=== PATIENT | female | born 1960 | race Caucasian/White ===

== ENCOUNTER 2019-08-12 18:03 | Emergency (ER) | payer OTHER ==
[~2019-08-12] VITALS: Ht 172.7 cm; Wt 76.5 kg
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
[2019-08-12] MEDS ORDERED: HALOPERIDOL 5 MG/ML ONE (18:27)
[2019-08-12] MEDS ORDERED: HALOPERIDOL 5 MG/ML IM ONE (18:30)
[2019-08-12 18:40] LABS: BASOPHILS # (AUTO) 0.02 x10^3/uL (0-0.1); BASOPHILS % (AUTO) 0 % (0-1); EOSINOPHILS # (AUTO) 0.05 x10^3/uL (0-0.4); EOSINOPHILS % (AUTO) 1 % (1-7); LYMPHOCYTES # (AUTO) 1.37 x10^3/uL (1-3.4); LYMPHOCYTES % (AUTO) 22 % (22-44); MD NO; MEAN CORPUSCULAR HEMOGLOBIN 30.8 pg (27.0-34.8); MEAN CORPUSCULAR HGB CONC 32.7 g/dL (32.4-35.8); MEAN CORPUSCULAR VOLUME 94.2 fL (80-100); MONOCYTES # (AUTO) 0.13 x10^3/uL (0.2-0.8); MONOCYTES % (AUTO) 2 % (2-9); NEUTROPHILS # (AUTO) 4.66 x10^3/uL (1.8-6.8); NEUTROPHILS % (AUTO) 75 % (42-75); PLATELET COUNT 327 x10^3/uL (130-400); RED BLOOD COUNT 4.97 x10^6/uL (3.82-5.3); RED CELL DISTRIBUTION WIDTH 14.3 % (9.6-15.2)
[2019-08-12 18:49] LABS: ALANINE AMINOTRANSFERASE 28 U/L (12-78); ALBUMIN 4.1 g/dL (3.4-5.0); ANION GAP 8 mmol/L (5-15); CALCIUM 9.8 mg/dL (8.5-10.1); CHLORIDE 108 mmol/L (98-107); CREATININE 0.75 mg/dL (0.55-1.02)
[2019-08-12 18:53] LABS: ALKALINE PHOSPHATASE 85 U/L (45-117); BILIRUBIN,TOTAL 0.3 mg/dL (0.2-1.0); TOTAL PROTEIN 7.8 g/dL (6.4-8.2); TROPONIN I < 0.015 ng/mL (0.000-0.045)
--- NOTE | 2019-08-12 19:18 | NUR ---
REPORT GIVEN TO KAREN.
--- NOTE | 2019-08-12 19:19 | NUR ---
REPORT FROM RENE, ASSUME CARE OF PT AT THIS TIME.
--- NOTE | 2019-08-12 19:54 | NUR ---
EKG COMPLETED. PT UP TO BSC, URINE COLLECTED/SENT TO LAB. VSS/UPDATED IN COMPUTER.
[2019-08-12 20:03] LABS: MICROSCOPIC NOT IND
[2019-08-12 20:04] LABS: CULTURE INDICATED? NO
[2019-08-12 20:13] LABS: AMPHETAMINE SCREEN, URINE Negative (Negative); BARBITURATE SCREEN, URINE Negative (Negative); BENZODIAZEPINE SCREEN, URINE Negative (Negative); CANNABINOID SCREEN, URINE Negative (Negative); COCAINE SCREEN, URINE Negative (Negative); METHADONE SCREEN, URINE Negative (Negative); OPIATE SCREEN, URINE Negative (Negative)
--- NOTE | 2019-08-12 20:58 | NUR ---
UA RESULTS BACK, PT FOR RECHECK.
--- NOTE | 2019-08-12 21:05 | NUR ---
received report fromceline Evangelista RN. patient sleeping, respiration unlabored. at bedside.
--- NOTE | 2019-08-12 21:10 | NUR ---
REPORT TO VICENTE ALCARAZ, TRANSFER OF CARE AT THIS TIME.
--- NOTE | 2019-08-12 21:57 | NUR ---
re-evaluation done. patient discharged with prescription and instruction. verbalized understanding.
[2019-08-12 21:58] VITALS: BP 100/49
== END 2019-08-12 22:00 | disposition home or self-care (01) ==
LOC: ED 21:14
DX: M54.5 Low back pain (principal); G89.29 Other chronic pain
CPT/HCPCS: 36415; 80053; 80307; 81003; 84484; 85025; 93005; 96372; 99284; J1630; 99283